=== PATIENT | male | born 1965 | race African-American/Black ===

== ENCOUNTER → 2016-09-09 | Outpatient (CLI) | payer BC ==
[~2016-09-09] MED LIST: 3N1 COMMODE MC; COU25 PO; OXYC-481 PO; WALK1EAC23 MC
--- NOTE | 2016-09-09 17:45 | RADRPT ---
PROCEDURE: XR pelvis and bilateral hips. CLINICAL INDICATION: PAIN TECHNIQUE: AP pelvis and frog lateral views of the right hip were performed. COMPARISON: Plain radiographs of the pelvis from 01/01/2016 FINDINGS: There is normal mineralization and alignment. No acute fracture or osseous lesion is identified. A right hip prosthesis is again noted in near anatomic alignment without evidence of hardware loosen ing. There is moderate narrowing of the left hip joint space. The soft tissues are unremarkable. IMPRESSION: Right hip prosthesis in near anatomic alignment without evidence of hardware loosening. 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 RPTAT: EE Physician Dania Date Time Electronically viewed and signed by Physician Dania on 09/09/2016 17:45 RA/
== END | disposition home or self-care (01) ==
LOC: HKI 14:51
PROVIDERS: ATTEND Orthopaedic Surgery
DX: Z09 Encounter for follow-up examination after completed treatment for conditions other than malignant neoplasm (principal); Z96.641 Presence of right artificial hip joint
CPT/HCPCS: 73502; G0463